=== PATIENT | female | born 1970 | race Caucasian/White ===

== ENCOUNTER 2020-04-24 21:47 | Inpatient (IN) | payer MEDICAID, SELFPAY ==
[2020-04-24 21:49] VITALS: BP 124/68; PULSE 76; RESP 16; TEMP 36.6; O2SAT 96; BMI 33.5
--- NOTE | 2020-04-24 22:04 | ED_ITS ---
HPI - Psych General: Chief Complaint: Psychiatric Symptoms Stated Complaint: DIRECT ADMIT/ SI Time Seen by Provider: 04/24/20 21:57 Source: patient Mode of arrival: ambulatory Limitations: no limitations History of Present Illness: HPI Narrative: Patient is a direct admit from [place]. Patient reports acute anxiety and there is notes of antisocial behavior. The patient is being screened in the ER for possible COVID. Patient denies any loss of sense of taste, loss of sense of smell, cough, shortness of breath or fever. Review of Systems Const: Denies: fever(s), chills, body aches, fatigue, malaise or diaphoresis Eyes: Denies: change in vision, blurry vision, blind spots, photophobia, eye discharge or eye redness ENMT: Denies: throat pain, odynophagia, hoarseness, swelling of lips/tongue, oral sores, ear or mastoid pain, ear discharge, change in hearing or nasal discharge Card: Denies: chest pain, palpitations, irregular heart rhythm, edema, lightheadedness, syncope, pre-syncope, dyspnea on exertion or orthopnea Resp: Denies: dyspnea, productive cough, non-productive cough, wheezing, hemoptysis or chest congestion GI: Denies: abdominal pain, nausea, vomiting, hematemesis, coffee ground emesis, heartburn, diarrhea, constipation, GI cramping, hematochezia or melena : Denies: flank pain, dysuria, urinary frequency, urinary urgency or hematuria Musc: Denies: neck pain, back pain, extremity pain, extremity swelling, joint pain, joint swelling, joint redness, joint warmth or joint stiffness Skin/Breast: Denies: rash, pruritus, erythema, skin tenderness or jaundice Neuro: Denies: headache(s), numbness in extremities, weakness in extremities, sensory changes, lack of coordination, difficulty walking, dizziness, vertigo, confusion, Slurred speech present or seizure-like activity Em[place]/Lymph: Denies: easy bruising, easy bleeding, petechiae, purpura or enlarged lymph nodes All/Imm: Denies: urticaria, throat swelling, tongue swelling, facial swelling or acute wheezing PFSH ED PFSH: Medical History (Updated 04/24/20 @ 23:19 by Juarez Rangel MD) Anxiety Breast cancer COPD (chronic obstructive pulmonary disease) Degenerative joint disease Dependency on alcohol Depression Diabetes mellitus type 2 in obese Hypertension Surgical History (Updated 04/24/20 @ 23:13 by Juarez Rangel MD) History of mastectomy Physical Exam Const: COMMON NORMALS: no acute distress, patient oriented x3, no limitations, healthy appearing and well nourished GENERAL APPEARANCE: cooperative, well kempt and well developed HENMT: COMMON NORMALS: normocephalic, atraumatic, external ears normal, EAC's normal and Normal external nose present HEAD & SCALP: normal to inspection, normocephalic and atraumatic FACE & SINUS: normal facial exam and face symmetric NOSE: Normal external nose present and Normal nares present EXTE RNAL EAR: Yes external ears normal EXTERNAL AUDITORY CANAL: EAC's normal MOUTH: Normal oral and palatal mucosa present, lip normal and tongue normal Eye: COMMON NORMALS: Equal, round and reactive pupils present and conjunctivae normal GENERAL EYE: appearance normal, both eyes and all related structures ALIGNMENT: Yes alignment normal PERIORBITAL: periorbital findings normal EYELID: eyelids normal CONJUNCTIVA: Yes conjunctivae normal SCLERA: s clerae normal PUPIL: Yes Equal, round and reactive pupils present Neck/C-Spine: COMMON NORMALS: full ROM, no lymphadenopathy, supple, no meningeal signs and no JVD GENERAL: Yes normal visual inspection and Yes trachea midline Chest: COMMONS NORMALS: normal inspection of the chest and normal palpation of entire chest wall Resp: COMMON NORMALS: normal respiratory effort, No retractions and No use of accessory muscles EFFORT & INSPECTION: Yes able to speak in complete sentences and Yes symmetric chest movement AUSCULTATION: no crackles, no rales, no rhonchi and no wheezes Cardio: COMMON NORMALS: no JVD, regular rate, regular rhythm, S1 normal heart sound present and S2 normal heart sound present RATE: regular rate RHYTHM: regular rhythm HEART SOUNDS: S1 normal heart sound present, S2 normal heart sound present, no click, no gallops, no murmurs, no rubs and abnormal split S2 GI: COMMON NORMALS: Soft to palpation and No hepatosplenomegaly present PALPATION: Yes Soft to palpation, No Tenderness to palpation present (GI), No Guarding due to palpation present (GI), No Rigid due to palpation, Yes No hepatosplenomegaly present, No Hernia present, No Palpable mass present and No Pulsatile mass present : COMMON NORMALS: Yes no CVA tenderness BLADDER/KIDNEY EXAM: Yes no CVA tenderness EXTERNAL FEMALE EXAM: No Hernia present Back/Pelvis: COMMON NORMALS: no CVA tenderness, thoracic and lumbar spine normal to inspection, no thoracic nor lumbar tenderness and thoraco-lumbar ROM normal Extremity: COMMON NORMALS: normal to inspection, full ROM, capillary refill normal, no joint enlargement, no clubbing, cyanosis or edema and no calf tenderness Neuro: COMMON NORMALS: patient oriented x3, CN's II-XII intact bilaterally, moves all extremities, no focal motor deficits and no sensory deficits noted MENINGEAL SIGNS: Yes no meningeal signs SPEECH: speech normal Psych: COMMON NORMALS: mental status grossly normal, Normal thought process present, cooperative, normal affect, speech normal and activity/motor behavior normal APPEARANCE: Yes well kempt SPEECH: Yes normal speech THOUGHT PROCESS: Normal thought process present Skin: COMMON NORMALS: no rashes or lesions noted, turgor normal, no jaundice, no petechiae and no mottling GENERAL SKIN EXAM: no rashes or lesions noted and turgor normal MDM - Psych MDM Narrative: Medical decision making narrative: Case reviewed with Dr. Monroe he agrees to accept the patient. Patient is not suicidal but I will add a Tylenol and salicylate level. She also has a UTI. I will order those medications for the NPU. Dr. Rangel notified of consult for diabetes. 0358 -patient has a positive qualitative beta hCG. The patient is somewhat menopausal but has not had a hysterectomy. We do occasionally get false positive test here caused by TSH, FSH and LH. I have notified Dr. Kerr and Dr. Rangel. Lab Data: Labs: Lab Results 04/24/20 04/24/20 04/24/20 Range/Units 22:11 22:11 22:11 Estimat Average Gl ucose Hemoglobin A1c (4.0-6.0) % TSH 1.10 (0.27-4.20) uIU/ mL HCG, Qual Positive H (Negative) Salicylates < 0.3 L (3-10) mg/dL Acetaminophen < 5.0 L (10-30) ug/mL 04/24/20 Range/Units 22:11 Estimat Average Gl ucose 303 Hemoglobin A1c 12.2 H (4.0-6.0) % TSH (0.27-4.20) uIU/ mL HCG, Qual (Negative) Salicylates (3-10) mg/dL Acetaminophen (10-30) ug/mL Discharge Plan Discharge Patient Disposition: Admitted As Inpatient Admit Provider: Zachary Kerr Clinical Impression: Acute anxiety Condition: Stable Discharge Date/Time: 04/24/20 23:44 Coding Level of Care Code ED Operations Specialist for Chg Fwd Exam Comprehensive
[2020-04-24 22:09] VITALS: BP 93/61; PULSE 74; RESP 20; TEMP 36.4; O2SAT 98
[2020-04-24 22:37] LABS: Acetaminophen < 5.0 ug/mL (10-30); Salicylate < 0.3 mg/dL (3-10)
--- NOTE | 2020-04-24 23:09 | P.CONIM_ITS ---
Providers/Reason For Consult Consulting Physican/Specialty*: Juarez Rangel hospitalist Reason for Consult*: Hyperglycemia Attending Physician: Zachary Kerr MD History of Present Illness History of Present Illness Ginger Ludwig is a 50 year old female transferred from [place], for methamphetamine use and anxiety to our neuropsychiatric unit. It is hard to delineate what exactly transpired to bring the patient to [place] in reviewing the records. She does admit to recently using methamphetamine. During my interview with her she can answer some questions but is obviously anxious, fidgeting and reports she has difficulty remembering. Information from the emergency department physician, examination of her medicines allows me to outline some of her past medical history. She cannot remember her long-acting insulin dose, but it is apparent it is Lantus. Review of Systems General: Reports: ROS unobtainable due to mental status (Although she can answer a few questions, she often reports she does not remember. She does specifically say that she has no COVID exposure, no cough, no fever.) Meds/Allergies Home Medications and Allergies Allergies Allergy/AdvReac Type Severity Reaction Status Date / Time No Known Allergies Allergy Verified 04/24/20 21:58 PFSH Acute PFSH: Medical History (Updated 04/24/20 @ 23:19 by Juarez Rangel MD) Anxiety Breast cancer COPD (chronic obstructive pulmonary disease) Degenerative joint disease Dependency on alcohol Depression Diabetes mellitus type 2 in obese Hypertension Surgical History (Updated 04/24/20 @ 23:13 by Juarez Rangel MD) History of mastectomy Supplemental PFSH Information: Unable to delineate family history from the patient currently secondary to her mental status. Social history is significant for methamphetamine use tobacco and marijuana. She seems to indicate she does not use alcohol. Vitals/I&O/Wt Last Vital Signs Temp 97.5 F L 04/24/20 22:09 Pulse 74 04/24/20 22:09 Resp 20 H 04/24/20 22:09 BP 93/61 04/24/20 22:09 Pulse Ox 98 04/24/20 22:09 Weight last 48 hrs Weight 88.451 kg Physical Exam Narrative: EXAM NARRATIVE: Gerald is a fidgeting white female, in no obvious distress HEENT: Pupils equally round. Oropharynx clear. Neck is supple no lymphadenopathy or thyromegaly Cardiovascular regular rate and rhythm without murmur. No S3 or S4 Lungs clear no wheezing or crackles Abdomen is soft with positive bowel sounds Extremities no cyanosis clubbing or edema Skin demonstrates multiple areas of picking, skin breakdown, track guadarrama, but no abscess Neuro no focal deficits, has difficulty concentrating, appears anxious and fidgeting Data Other Data: Other data: Laboratory at outside institution has sodium 137, potassium 3.5, chloride 106, bicarb 24, BUN 20, creatinine 1.0, glucose 367 for which she received some insulin. No TSH or test was done White blood cell count 9.1, hemoglobin 14, platelets 189, troponin undetectable, CK 133. Urine white blood cells 44, red blood cells 6 Urine drug screen positive for methamphetamine and THC Salicylate and acetaminophen level negative. Repeat glucose at our institution 139. A&P Assessment and plan (1) Methamphetamine use: Psychiatry to to manage. Check test Encourage cessation Status: Acute (2) Anxiety: Psychiatry to manage Check TSH Status: Acute (3) Depression: Psychiatry to manage Status: Acute (4) Diabetes mellitus type 2 in obese: It appears she is on Lantus, unknown dose along with glipizide and Januvia. She may be on other medications. Will initiate Lantus 10 units every day Moderate sliding scale insulin Further adjustments in this regimen and/or addition of home medications when home list is reviewed and reconciled Check hemoglobin A1c Status: Acute (5) UTI (urinary tract infection): Oral cefuroxime Status: Acute Additional A&P Information Tobacco tendency. Encourage cessation. History of breast cancer. Hopefully she can give more history when she is less under the influence of self-reported drug use History of hypertension. She has been on diltiazem 180 mg daily. Hold as her blood pressure is low currently. May need to restart as hospitalization c ontinues Peripheral neuropathy. On Neurontin 600 mg 3 times daily. May need to be restarted in near future History of COPD. Will provide DuoNeb as needed. We will continue her home Advair Full code Low risk for DVT Consult Attestations Medical Necessity Statement: As per primary Time Spent in Patient Care: Greater than 35 minutes Coding Level of Care Code Acute Clinical Support Specialist for Chg Fwd Diagnoses Methamphetamine use F15.10 Anxiety F41.9 Depression F32.9 Diabetes mellitus type 2 in obese E11.69; E66.9 UTI (urinary tract infection) N39.0
--- NOTE | 2020-04-24 23:09 | PC.NURSE ---
BG 139
[2020-04-24 23:21] LABS: Glucose Point of Care 139 mg/dL (70-110)
[2020-04-24 23:39] VITALS: BP 120/54; PULSE 56; RESP 17; TEMP 36.4; O2SAT 91
[2020-04-24 23:39] LABS: HCG, Serum Qual Positive (Negative)
[2020-04-25] VITALS (9 sets, daily range): BP systolic 101–155; BP diastolic 53–87; PULSE 74–86; RESP 13–18; TEMP 36.5–37; O2SAT 94–98
[2020-04-25 00:06] LABS: Estmated Average Glucose 303; Hemoglobin A1C 12.2 % (4.0-6.0)
--- NOTE | 2020-04-25 03:21 | PC.NURSE ---
Voluntary admission from the ED. Transfer from [facility]. The patient went to the [facility] complaining of anxiety from meth use. She was to be discharged from the ED. She then said she was going to burn her house down. The patient had a recent divorce. Her family has kicked her out. The patient is IDDM. Blood glucose in [facility] was 139. A&Ox4. Cooperative. Not psychotic. Drug screen positive for meth and THC.
[2020-04-25 05:27] LABS: HCG, Serum Qual Positive (Negative)
[2020-04-25 06:51] LABS: Glucose Point of Care 182 mg/dL (70-110)
[2020-04-25] MEDS: cefUROXime 250 mg Tablet PO ×2 (09:37→17:47)
[2020-04-25] MEDS: gabapentin 300 mg Capsule 600 MG PO ×3 (09:37→22:15)
[2020-04-25] MEDS: dilTIAZem ER (24HR) 180 mg Capsule PO (09:37)
[2020-04-25] MEDS: citalopram 20 mg Tablet 40 MG PO (09:38)
[2020-04-25] MEDS: acetaminophen 325 mg Tablet 650 MG PO (09:38)
[2020-04-25] MEDS: sitagliptin 100 mg Tablet PO (09:38)
[2020-04-25 11:16] LABS: Glucose Point of Care 227 mg/dL (70-110)
--- NOTE | 2020-04-25 12:45 | P.PN_ITS ---
Subjective Subjective: Interval history: Chart reviewed, med rec confirmed. Hemodynamically stable, accucheks noted. Resting quietly in bed, seems somewhat scattered but is alert and calm during my encouter. Quantitative b-hCG noted. Medications: Reviewed: Yes Medication Review Details: Active Medications Generic Name Dose Route Start Last Admin Trade Name Freq PRN Reason Stop Dose Admin Acetaminophen 650 mg 04/24/20 23:39 04/25/20 09:38 Tylenol PO 650 mg Q4H PRN Administration MILD PAIN Albuterol Sulfate 0 puff 04/25/20 07:41 Ventolin INHALATION BID PRN SHORTNESS OF MICHELLE TH Albuterol/Ipratrop ium 1 puff 04/25/20 08:00 04/25/20 09:57 Combivent Respim at INHALATION 1 puff QID.RESPIRATORY S CH Administration Benztropine Mesyla te 1 mg 04/24/20 23:39 Cogentin PO BID PRN Mild Extrapyramid al symptoms Camphor/Menthol/Ph enol 1 applic 04/24/20 23:39 Blistex TOPICAL Q1H PRN DRYNESS Cefuroxime Axetil 250 mg 04/25/20 09:00 04/25/20 09:37 Ceftin PO 04/28/20 07:00 250 mg BID BAM Administration Protocol Citalopram Hydrobr omide 40 mg 04/25/20 09:00 04/25/20 09:38 Celexa PO 40 mg DAILY BAM Administration Dextrose 25 ml 04/24/20 23:39 D50w IVP ONCE PRN hypoglycemia prot ocol Protocol Dextrose 50 ml 04/24/20 23:39 D50w IVP PRN PRN hypoglycemia prot ocol Protocol Diltiazem HCl 180 mg 04/25/20 09:00 04/25/20 09:37 Cardizem Cd (24h r) PO 180 mg DAILY BAM Administration Diphenhydramine HC l 50 mg 04/24/20 23:39 Benadryl IM ONCE PRN Severe Extrapyram idal Symptoms Diphenhydramine HC l 50 mg 04/24/20 23:39 Benadryl IM Q4H PRN Severe Aggression Gabapentin 600 mg 04/25/20 09:00 04/25/20 09:37 Neurontin PO 600 mg TID BAM Administration Glucagon 1 mg 04/24/20 23:39 Glucagen IM ONCE PRN Adult Acute Hypog lycemia Prot. Protocol Haloperidol 5 mg 04/24/20 23:39 Haldol PO Q4H PRN AGITATION Haloperidol Lactat e 5 mg 04/24/20 23:39 Haldol Inj IM Q4H PRN Severe Aggression Hydroxyzine Pamoat e 50 mg 04/24/20 23:39 Vistaril PO Q6H PRN ANXIETY Hydroxyzine Pamoat e 50 mg 04/25/20 07:30 Vistaril PO Q6H PRN ITCHING OR ANXIET Y Dextrose 500 mls @ 100 mls /hr 04/24/20 23:39 D5w IV ONCE PRN Adult Acute Hypog lycemia Prot Protocol Ibuprofen 800 mg 04/25/20 06:19 Motrin PO Q8H PRN Pain, Moderate Insulin Aspart 0 unit 04/25/20 08:00 04/25/20 11:28 Novolog SUBCUT 8 unit WM&BEDTIME BAM Administration Protocol Insulin Glargine 50 unit 04/25/20 21:00 Lantus SUBCUT BEDTIME BAM Loperamide HCl 2 mg 04/24/20 23:39 Imodium Capsule PO Q6H PRN DIARRHEA Lorazepam 2 mg 04/24/20 23:39 Ativan IM Q4H PRN Severe Aggression Nicotine 1 patch 04/24/20 23:39 Nicoderm 21 Mg P atch TRANSDERMA DAILY PRN NICOTINE WITHDRAW AL Nicotine Polacrile x 2 mg 04/24/20 23:39 Nicorette BUCCAL Q2H PRN NICOTINE WITHDRAW AL Non-Formulary Medi cation 5 mg 04/25/20 09:00 Glipizide [Gluco trol] PO DAILY [facility] Olanzapine 5 mg 04/24/20 23:39 Zyprexa Zydis PO Q4H PRN Agitation/Psychos is Ondansetron HCl 4 mg 04/24/20 23:39 Zofran PO Q6H PRN NAUSEA AND VOMITI NG Fluticasone/Salmet danielle 1 puff 04/25/20 08:00 04/25/20 09:58 Advair Diskus 25 0-50 INHALATION 1 puff BID.RESPIRATORY S CH Administration Sitagliptin Phosph ate 100 mg 04/25/20 09:00 04/25/20 09:38 Januvia PO 100 mg DAILY BAM Administration Trazodone HCl 50 mg 04/24/20 23:39 Desyrel PO BEDTIME PRN SLEEP No Known Allergies Allergy (Verified 04/24/20 21:58) Vitals/I&O/Wt Last Vital Signs Temp 97.7 F 04/25/20 06:00 Pulse 86 04/25/20 10:01 Resp 18 04/25/20 10:01 BP 137/87 04/25/20 06:00 Pulse Ox 98 04/25/20 10:01 Weight last 48 hrs Weight 88.451 kg Physical Exam Const: COMMON NORMALS: no acute distress, patient oriented x3 and alert GENERAL APPEARANCE: cooperative, comfortable and appears older than stated age NUTRITIONAL APPEARANCE: obese morbidly obese ORIENTATION/CONSCIOUSNESS: Yes awake HENMT: COMMON NORMALS: normocephalic, atraumatic, hearing grossly normal bilaterally and moist oral mucous membranes HEAD & SCALP: normocephalic and atraumatic Eye: COMMON NORMALS: Equal, round and reactive pupils present, EOMs intact bilaterally and conjunctivae normal CONJUNCTIVA: Yes conjunctivae normal PUPIL: Yes Equal, round and reactive pupils present Neck/C-Spine: COMMON NORMALS: full ROM GENERAL: Yes normal visual inspection and Yes trachea midline Resp: COMMON NORMALS: normal respiratory effort, No retractions, No use of accessory muscles and clear to auscultation bilaterally EFFORT & INSPECTION: Yes able to speak in complete sentences, Yes symmetric chest movement and No tachypneic AUSCULTATION: clear to auscultation bilaterally Cardio: COMMON NORMALS: regular rate, regular rhythm, S1 normal heart sound present, S2 normal heart sound present and No murmurs present (Cardio) RATE: regular rate RHYTHM: regular rhythm HEART SOUNDS: S1 normal heart sound present and S2 normal heart sound present GI: COMMON NORMALS: Normal to inspection, nondistended, normoactive bowel sounds present, Soft to palpation and non-tender PALPATION: Yes Soft to palpation Extremity: COMMON NORMALS: normal to inspection, full ROM and no clubbing, cyanosis or edema; negative for no pedal edema Neuro: COMMON NORMALS: patient oriented x3, moves all extremities, no focal motor deficits, no sensory deficits noted and gait normal SENSORIUM/ORIENTATION: Yes alert Psych: COMMON NORMALS: mental status grossly normal, Normal thought process present, cooperative, normal affect and speech normal SPEECH: Yes normal speech THOUGHT PROCESS: Normal thought process present Skin: COMMON NORMALS: no jaundice, no petechiae and no mottling NARRATIVE SKIN EXAM: -psoriatic lesions on bilateral elbows, knees and bilateral arms GENERAL SKIN EXAM: crusts (elbows, knees) A&P Assessment and plan (1) Methamphetamine use: -self reported, confirmed on UDS -per psychiatry Status: Acute (2) Depression: Status: Chronic Qualifiers: Depression Type: unspecified Qualified Code(s): F32.9 - Major depressive disorder, single episode, unspecified (3) Anxiety: Status: Chronic (4) UTI (urinary tract infection): -continue cefuroxime Status: Acute Qualifiers: Hematuria presence: without hematuria Urinary tract infection type: acute cystitis Qualified Code(s): N30.00 - Acute cystitis without hematuria (5) Diabetes mellitus type 2 in obese: -IDDM type II -A1c-12.2 -Accuchecks, ISS, scheduled lantus -consistent carb diet -glipizide not on formulary, continue januvia Status: Chronic (6) Hypertension: -on diltiazem -hemodynamically stable, continue to monitor vital signs Status: Chronic Qualifiers: Hypertension type: essential hypertension Qualified Code(s): I10 - Essential (primary) hypertension (7) Breast cancer: -details unknown Status: Chronic Qualifiers: Breast location: unspecified site of breast Estrogen receptor status: unspecified Laterality: unspecified laterality Patient sex: female Qualified Code(s): C50.919 - Malignant neoplasm of unspecified site of unspecified female breast Additional A&P Information -Morbid obesity: BMI-34 kg/m2 -Psoriatic dermatitis; add topical corticosteroids -+ test, serum quantitative b-hCG noted (7), unlikely to be true -consistent carb diet as tolerated -Dispo: per psych; homeless -Code status: FULL code Attestations Medical Necessity Statement*: Patient requires hospitalization for inpatient psychiatric care. Time Spent in Patient Care: 16 - 35 minutes (>than 50% of time spent in counselling and/or direct pt care on unit) . Coding Level of Care Code Acute Director Of Software Development for Chg Fwd Exam Comprehensive Diagnoses Methamphetamine use F15.10 Depression F32.9 Depression Type: unspecified Anxiety F41.9 UTI (urinary tract infection) N30.00 Hematuria presence: without hematuria Urinary tract infection type: acute cystitis Diabetes mellitus type 2 in obese E11.69; E66.9 Hypertension I10 Hypertension type: essential hypertension Breast cancer C50.919 Breast location: unspecified site of breast Estrogen receptor status: unspecified Laterality: unspecified laterality Patient sex: female
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
[2020-04-25 14:13] LABS: HCG Quantitative 7.04 mIU/mL
[2020-04-25] MEDS: clotrimazole-betamethasone cream 15gm 1 APPLIC TOPICAL ×2 (16:29→22:14)
[2020-04-25 16:34] LABS: Glucose Point of Care 209 mg/dL (70-110)
[2020-04-25 20:15] LABS: Glucose Point of Care 177 mg/dL (70-110)
[2020-04-25] MEDS: mirtazapine 30 mg Tablet PO (22:14)
[2020-04-25] MEDS: insulin glargine 100 units/1 mL 50 UNIT SUBCUT (22:16)
[2020-04-25] MEDS: nicotine 2 mg Gum BUCCAL (22:19)
[2020-04-26] VITALS (8 sets, daily range): BP systolic 118–172; BP diastolic 80–96; PULSE 73–93; RESP 14–20; TEMP 36.6–36.9; O2SAT 92–99
[2020-04-26 06:52] LABS: Glucose Point of Care 262 mg/dL (70-110)
[2020-04-26] MEDS: dilTIAZem ER (24HR) 180 mg Capsule PO (08:13)
[2020-04-26] MEDS: gabapentin 300 mg Capsule 600 MG PO ×3 (08:13→21:32)
[2020-04-26] MEDS: sitagliptin 100 mg Tablet PO (08:13)
[2020-04-26] MEDS: cefUROXime 250 mg Tablet PO ×2 (08:13→17:00)
[2020-04-26] MEDS: clotrimazole-betamethasone cream 15gm 1 APPLIC TOPICAL ×2 (08:14→21:37)
[2020-04-26] MEDS: nicotine 21 mg Patch 1 PATCH TRANSDERMA (08:16)
[2020-04-26 11:46] LABS: Glucose Point of Care 307 mg/dL (70-110)
--- NOTE | 2020-04-26 12:48 | P.PN_ITS ---
Subjective Subjective: Interval history: Noted hypertension, reviewed accuchecks. Resting quietly in bed though appears anxious overall. Medications: Reviewed: Yes Medication Review Details: Active Medications Generic Name Dose Route Start Last Admin Trade Name Freq PRN Reason Stop Dose Admin Acetaminophen 650 mg 04/24/20 23:39 04/25/20 09:38 Tylenol PO 650 mg Q4H PRN Administration MILD PAIN Albuterol Sulfate 0 puff 04/25/20 07:41 Ventolin INHALATION BID PRN SHORTNESS OF MICHELLE TH Albuterol/Ipratrop ium 1 puff 04/25/20 08:00 04/26/20 11:24 Combivent Respim at INHALATION 1 puff QID.RESPIRATORY S CH Administration Benztropine Mesyla te 1 mg 04/24/20 23:39 Cogentin PO BID PRN Mild Extrapyramid al symptoms Betamethasone/Clot rimazole 1 applic 04/25/20 15:00 04/26/20 08:14 Lotrisone TOPICAL 1 applic TID BAM Administration Camphor/Menthol/Ph enol 1 applic 04/24/20 23:39 Blistex TOPICAL Q1H PRN DRYNESS Cefuroxime Axetil 250 mg 04/25/20 09:00 04/26/20 08:13 Ceftin PO 04/28/20 07:00 250 mg BID BAM Administration Protocol Dextrose 25 ml 04/24/20 23:39 D50w IVP ONCE PRN hypoglycemia prot ocol Protocol Dextrose 50 ml 04/24/20 23:39 D50w IVP PRN PRN hypoglycemia prot ocol Protocol Diltiazem HCl 180 mg 04/25/20 09:00 04/26/20 08:13 Cardizem Cd (24h r) PO 180 mg DAILY BAM Administration Diphenhydramine HC l 50 mg 04/24/20 23:39 Benadryl IM ONCE PRN Severe Extrapyram idal Symptoms Diphenhydramine HC l 50 mg 04/24/20 23:39 Benadryl IM Q4H PRN Severe Aggression Gabapentin 600 mg 04/25/20 09:00 04/26/20 08:13 Neurontin PO 600 mg TID BAM Administration Glucagon 1 mg 04/24/20 23:39 Glucagen IM ONCE PRN Adult Acute Hypog lycemia Prot. Protocol Haloperidol 5 mg 08/05/20 23:39 Haldol PO Q4H PRN AGITATION Haloperidol Lactat e 5 mg 04/24/20 23:39 Haldol Inj IM Q4H PRN Severe Aggression Hydroxyzine Pamoat e 50 mg 04/24/20 23:39 Vistaril PO Q6H PRN ANXIETY Hydroxyzine Pamoat e 50 mg 04/25/20 07:30 Vistaril PO Q6H PRN ITCHING OR ANXIET Y Dextrose 500 mls @ 100 mls /hr 04/24/20 23:39 D5w IV ONCE PRN Adult Acute Hypog lycemia Prot Protocol Ibuprofen 800 mg 04/25/20 06:19 Motrin PO Q8H PRN Pain, Moderate Insulin Aspart 0 unit 04/25/20 08:00 04/26/20 11:48 Novolog SUBCUT 12 unit WM&BEDTIME BAM Administration Protocol Insulin Aspart 10 unit 04/26/20 17:00 Novolog SUBCUT TIDAC BAM Insulin Glargine 50 unit 04/25/20 21:00 04/25/20 22:16 Lantus SUBCUT 50 unit BEDTIME BAM Administration Loperamide HCl 2 mg 04/24/20 23:39 Imodium Capsule PO Q6H PRN DIARRHEA Lorazepam 2 mg 04/24/20 23:39 Ativan IM Q4H PRN Severe Aggression Mirtazapine 30 mg 04/25/20 21:00 04/25/20 22:14 Remeron PO 30 mg BEDTIME BAM Administration Nicotine 1 patch 04/24/20 23:39 04/26/20 08:16 Nicoderm 21 Mg P atch TRANSDERMA 1 patch DAILY PRN Administration NICOTINE WITHDRAW AL Nicotine Polacrile x 2 mg 04/24/20 23:39 04/25/20 22:19 Nicorette BUCCAL 2 mg Q2H PRN Administration NICOTINE WITHDRAW AL Non-Formulary Medi cation 5 mg 04/25/20 09:00 Glipizide [Gluco trol] PO DAILY [facility] Olanzapine 5 mg 04/24/20 23:39 Zyprexa Zydis PO Q4H PRN Agitation/Psychos is Ondansetron HCl 4 mg 04/24/20 23:39 Zofran PO Q6H PRN NAUSEA AND VOMITI NG Fluticasone/Salmet danielle 1 puff 04/25/20 08:00 04/26/20 07:57 Advair Diskus 25 0-50 INHALATION 1 puff BID.RESPIRATORY S CH Administration Sitagliptin Phosph ate 100 mg 04/25/20 09:00 04/26/20 08:13 Januvia PO 100 mg DAILY BAM Administration Trazodone HCl 100 mg 04/25/20 13:44 Desyrel PO BEDTIME PRN SLEEP No Known Allergies Allergy (Verified 04/24/20 21:58) Vitals/I&O/Wt Last Vital Signs Temp 97.9 F 04/26/20 06:00 Pulse 81 04/26/20 11:25 Resp 16 04/26/20 11:25 BP 172/96 04/26/20 06:00 Pulse Ox 94 04/26/20 11:25 Weight last 48 hrs Weight 88.451 kg Physical Exam Const: COMMON NORMALS: no acute distress, patient oriented x3 and alert GENERAL APPEARANCE: cooperative, comfortable and appears older than stated age NUTRITIONAL APPEARANCE: obese morbidly obese ORIENTATION/CONSCIOUSNESS: Yes awake HENMT: COMMON NORMALS: normocephalic, atraumatic, hearing grossly normal bilaterally and moist oral mucous membranes HEAD & SCALP: normocephalic and atraumatic Eye: COMMON NORMALS: Equal, round and reactive pupils present, EOMs intact bilaterally and conjunctivae normal CONJUNCTIVA: Yes conjunctivae normal PUPIL: Yes Equal, round and reactive pupils present Neck/C-Spine: COMMON NORMALS: full ROM GENERAL: Yes normal visual inspection and Yes trachea midline Resp: COMMON NORMALS: normal respiratory effort, No retractions, No use of accessory muscles and clear to auscultation bilaterally EFFORT & INSPECTION: Yes able to speak in complete sentences, Yes symmetric chest movement and No tachypneic AUSCULTATION: clear to auscultation bilaterally Cardio: COMMON NORMALS: regular rate, regular rhythm, S1 normal heart sound present, S2 normal heart sound present and No murmurs present (Cardio) RATE: regular rate RHYTHM: regular rhythm HEART SOUNDS: S1 normal heart sound present and S2 normal heart sound present GI: COMMON NORMALS: Normal to inspection, nondistended, normoactive bowel sounds present, Soft to palpation and non-tender PALPATION: Yes Soft to palpation Extremity: COMMON NORMALS: normal to inspection, full ROM and no clubbing, cyanosis or edema; negative for no pedal edema Neuro: COMMON NORMALS: patient oriented x3, moves all extremities, no focal motor deficits, no sensory deficits noted and gait normal SENSORIUM/ORIENTATION: Yes alert Psych: COMMON NORMALS: mental status grossly normal, Normal thought process present, cooperative and speech normal SPEECH: Yes normal speech MOOD & AFFECT: Yes anxious THOUGHT PROCESS: Normal thought process present Skin: COMMON NORMALS: no jaundice, no petechiae and no mottling NARRATIVE SKIN EXAM: -psoriatic lesions on bilateral elbows, knees and bilateral arms GENERAL SKIN EXAM: crusts (elbows, knees) A&P Assessment and plan (1) Methamphetamine use: -self reported, confirmed on UDS -per psychiatry Status: Acute (2) Depression: Status: Chronic Qualifiers: Depression Type: unspecified Qualified Code(s): F32.9 - Major depressive disorder, single episode, unspecified (3) Anxiety: Status: Chronic (4) UTI (urinary tract infection): -continue cefuroxime Status: Acute Qualifiers: Hematuria presence: without hematuria Urinary tract infection type: acute cystitis Qualified Code(s): N30.00 - Acute cystitis without hematuria (5) Diabetes mellitus type 2 in obese: -IDDM type II -A1c-12.2 -Accuchecks, ISS, scheduled lantus; add meal-time insulin -consistent carb diet -glipizide not on formulary, continue januvia Status: Chronic (6) Hypertension: -on diltiazem -hypertensive, add low dose amlodipine, continue to monitor vital signs Status: Chronic Qualifiers: Hypertension type: essential hypertension Qualified Code(s): I10 - Essential (primary) hypertension (7) Breast cancer: -details unknown Status: Chronic Qualifiers: Breast location: unspecified site of breast Estrogen receptor status: unspecified Laterality: unspecified laterality Patient sex: female Qualified Code(s): C50.919 - Malignant neoplasm of unspecified site of unspecified female breast Additional A&P Information -Morbid obesity: BMI-34 kg/m2 -Psoriatic dermatitis; on topical corticosteroids -+ test, serum quantitative b-hCG noted (7), unlikely to be true -consistent carb diet as tolerated -Dispo: per psych; homeless -Code status: FULL code Attestations Medical Necessity Statement*: Patient requires hospitalization for continued care per psychiatry. Time Spent in Patient Care: less than 15 minutes (>than 50% of time spent in counselling and/or direct pt care on unit) . Coding Level of Care Code Acute Bookie for Chg Fwd Exam Comprehensive Diagnoses Methamphetamine use F15.10 Depression F32.9 Depression Type: unspecified Anxiety F41.9 UTI (urinary tract infection) N30.00 Hematuria presence: without hematuria Urinary tract infection type: acute cystitis Diabetes mellitus type 2 in obese E11.69; E66.9 Hypertension I10 Hypertension type: essential hypertension Breast cancer C50.919 Breast location: unspecified site of breast Estrogen receptor status: unspecified Laterality: unspecified laterality Patient sex: female
[2020-04-26] MEDS: amlodipine 5 mg Tablet 2.5 MG PO (12:58)
--- NOTE | 2020-04-26 13:57 | P.PN_ITS ---
Subjective NPU Subjective: Interval history: Patient complains of anxiety during the day but she is not taking her as needed hydroxyzine. She also is complaining of low back pain which is a chronic problem for her and that is impairing her sleep. Mental Status Exam MSE Comments: Mental Status Exam: The patient is an alert interpersonally engaged female appearing approximately her stated age. She is modestly overweight. Eye contact is good. She is believed to be generally a reliable source of information as information she provides is internally consistent and generally consistent with that in the chart. Appearance: hygiene is fair; no gross neurological deficits., gait is unremarkable; AIMS=0 Speech: Speech is of normal rate and rhythm and easily understood. Thought processes: Thought processes are abstract. Judgment is adequate for safety. Associations: intact Psychotic processes: There is no indication of guarding or paranoia. There is no attention to the internal stimuli. Auditory and visual hallucinations are denied. Judgment: Insight is fair. Problem solving skills are adequate for safety. Orientation: The patient is oriented to person, place time and situation. Memory: no deficits noted in immediate, intermediate, or remote spheres. Attention: The patient is alert and interpersonally engaged. Language: Verbalizations are coherent. Fund of knowledge: Fund of knowledge is adequate. Affect/Mood: Affect is sad with a depressed mood. pt denies suicidal ideation Affective range appropriate. Psychosis: perception unimpaired except through cognitive distortion; reality testing intact. Cognition: Patient Appearance: Appropriate Level of Consciousness: Awake, Alert and Appropriate Patient Cognition Impaired: No Ability to Follow Directions: Good Patient Orientation (long list): Person, Place, Time, Name and Age Comprehension Ability: No Impairment Hallucination Type: None Delusion Description: Not Present Thought Process: Appropriate Affect: Affect Description: Calm Depressive Symptoms: Difficulty Concentrating, Difficulty Sleeping, Difficulty Making Decisions, Increased Anxiety, Increased Fatigue, Isolating Oneself From Friends and Family and Unhappiness Behavior: Patient Behavior: Cooperative Speech Pattern: Clear Vitals/I&O/Wt Last Vital Signs Temp 97.9 F 04/26/20 06:00 Pulse 81 04/26/20 11:25 Resp 16 04/26/20 11:25 BP 172/96 04/26/20 06:00 Pulse Ox 94 04/26/20 11:25 Weight last 48 hrs Weight 88.451 kg A&P Additional A&P Information Diagnoses: Major depression?single episode, severe, without psychotic features Crisis reaction Adjustment disorder with disturbance of mood Assessment: The patient is believed to be a reliable informant and as such, she truly is in a situation of psychosocial and financial crisis. He meets criteria for clinical depression and is not being served well by her current medication. Medication adjustments will be coming. She is somewhat invested and portraying herself as a victim and to that degree it is unclear how accurate her descriptions of her psychosocial situation are. Further investigation is warranted. Treatment plan: Due to the psychiatric conditions and treatment listed in the Assessment and Plan - the patient requires continued hospitalization. Will provide a safe and therapeutic environment for patient.. Will continue inpatient treatment to allow for medication adjustment and monitoring. Will continue q15 min safety checks. Hospital day #1: Patient will be admitted to the adult psychiatric unit and entered into the full array of individual and group therapies as part of that unit protocol. They will be provided 24-hour access to trained psychiatric nursing care and monitoring. Potential benefits and side effects of medications were discussed as well as the time course of expected response to medication changes. The patient is believed to be a reliable informant and as such, she truly is in a situation of psychosocial and financial crisis. He meets criteria for clinical depression and is not being served well by her current medication. Medication adjustments will be coming. She is somewhat invested and portraying herself as a victim and to that degree it is unclear how accurate her descriptions of her psychosocial situation are. Further investigation is warranted. Plan: Citalopram will be replaced with mirtazapine 30 mg at bedtime. It will be supplemented with trazodone for sleep. Hospital day #2: Medicine service is titrating her insulin dosages and assisting with medical issues. Patient is engaged and crisis stabilization efforts. Her medications are not causing her problems at least in the first dosages. Plan: Recommend requesting as needed anxiety medication. Cyclobenzaprine started at at bedtime to assist with back pain and sleep. Monitor patient's mood, sleep, appetite, and behavior closely. Encourage patient to participate in individual and group therapeutic sessions on the jama. Estimated length of stay 5 days The expected benefits and potential side effects of patient's psychiatric medications were discussed with the patient. The patient understands and consents to treatment.CRITERIA FOR DISCHARGE: stable on medications and no longer an imminent risk Involuntary Hold Information 96 Hour Hold: 96 Hour Involuntary Admission: Yes 96 Hour Hold Ending Date: 04/30/20 96 Hour Hold Ending Time: 23:30 Attestations NPU Medical Necessity Statement*: Patient to remain in hospital another 3-4 nights for completion of medication efficacy and tolerability assessment. Coding Level of Care Code Acute Director Of Integrated Marketing for Asha Otero
[2020-04-26] MEDS: cyclobenzaprine 10 mg Tablet 5 MG PO (14:08)
[2020-04-26] MEDS: hyDROXYzine 25 mg Capsule PO (14:58)
--- NOTE | 2020-04-26 14:58 | PC.NURSE ---
prn Vistaril 25 mg given po per pt c/o stated anxiety. no outward s/s of anxiety noted. pt has been asleep in bed in room most of the day. staff will cont to monitor
[2020-04-26 16:49] LABS: Glucose Point of Care 168 mg/dL (70-110)
--- NOTE | 2020-04-26 17:30 | PC.NURSE ---
Patient stated that she had been anxious but she is feeling better since she began taking medication. Her visit with her son went well and the relationship is more open for communication. He said he would come and get her from [place], [place] but she said she needs to be on her own and wants longterm placement. Patients rash is healing well but is still red and scaly. She says that it itches some but the cream she is currently using is helping. When asked if this is a skin condition like dermatitis, she said no that it is actually a reaction to multiple bug bites.
--- NOTE | 2020-04-26 18:46 | PC.RESP ---
SMOKING CESSATION AND PULMONARY REHAB INFORMATION SENT TO PATIENT.
[2020-04-26 20:05] LABS: Glucose Point of Care 132 mg/dL (70-110)
[2020-04-26] MEDS: acetaminophen 325 mg Tablet 650 MG PO (21:32)
[2020-04-26] MEDS: mirtazapine 30 mg Tablet PO (21:33)
[2020-04-26] MEDS: cyclobenzaprine 10 mg Tablet PO (21:33)
[2020-04-26] MEDS: insulin glargine 100 units/1 mL 50 UNIT SUBCUT (21:35)
[2020-04-27] VITALS (7 sets, daily range): BP systolic 113–166; BP diastolic 75–95; PULSE 80–84; RESP 16–19; TEMP 36.8–36.9; O2SAT 92–97
[2020-04-27] MEDS: hyDROXYzine 25 mg Capsule PO ×3 (01:49→20:34)
[2020-04-27 06:32] LABS: Glucose Point of Care 154 mg/dL (70-110)
[2020-04-27] MEDS: sitagliptin 100 mg Tablet PO (07:33)
[2020-04-27] MEDS: amlodipine 5 mg Tablet 2.5 MG PO (07:33)
[2020-04-27] MEDS: gabapentin 300 mg Capsule 600 MG PO ×3 (07:33→20:34)
[2020-04-27] MEDS: cefUROXime 250 mg Tablet PO ×2 (07:33→16:54)
[2020-04-27] MEDS: dilTIAZem ER (24HR) 180 mg Capsule PO (07:34)
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
[2020-04-27 11:24] LABS: Glucose Point of Care 163 mg/dL (70-110)
--- NOTE | 2020-04-27 12:50 | PC.NURSE ---
PRN VISTARIL 25 MG GIVEN PO PER PT C/O ANXIETY. TEARFUL IN ROOM. WILL CONT TO MONITOR
--- NOTE | 2020-04-27 13:10 | P.PN_ITS ---
Subjective Subjective: Interval history: Hemodynamically stable, Accu-Cheks noted with improvement since introduction of mealtime insulin. Resting quietly in bed, somewhat difficult to arouse that she has just received a dose of Vistaril. Per nursing staff, no issues. Medications: Reviewed: Yes Medication Review Details: Active Medications Generic Name Dose Route Start Last Admin Trade Name Freq PRN Reason Stop Dose Admin Acetaminophen 650 mg 04/24/20 23:39 04/26/20 21:32 Tylenol PO 650 mg Q4H PRN Administration MILD PAIN Albuterol Sulfate 0 puff 04/25/20 07:41 Ventolin INHALATION BID PRN SHORTNESS OF MICHELLE TH Albuterol/Ipratrop ium 1 puff 04/25/20 08:00 04/27/20 08:05 Combivent Respim at INHALATION 1 puff QID.RESPIRATORY S CH Administration Amlodipine Besylat e 2.5 mg 04/26/20 12:50 04/27/20 07:33 Norvasc PO 2.5 mg DAILY BAM Administration Benztropine Mesyla te 1 mg 04/24/20 23:39 Cogentin PO BID PRN Mild Extrapyramid al symptoms Betamethasone/Clot rimazole 1 applic 04/25/20 15:00 04/27/20 07:34 Lotrisone TOPICAL Not Given TID BAM Camphor/Menthol/Ph enol 1 applic 04/24/20 23:39 Blistex TOPICAL Q1H PRN DRYNESS Cefuroxime Axetil 250 mg 04/25/20 09:00 04/27/20 07:33 Ceftin PO 04/28/20 07:00 250 mg BID BAM Administration Protocol Cyclobenzaprine HC l 5 mg 04/27/20 08:02 Flexeril PO TID PRN MUSCLE SPASMS Dextrose 25 ml 04/24/20 23:39 D50w IVP ONCE PRN hypoglycemia prot ocol Protocol Dextrose 50 ml 04/24/20 23:39 D50w IVP PRN PRN hypoglycemia prot ocol Protocol Diltiazem HCl 180 mg 04/25/20 09:00 04/27/20 07:34 Cardizem Cd (24h r) PO 180 mg DAILY BAM Administration Diphenhydramine HC l 50 mg 04/24/20 23:39 Benadryl IM ONCE PRN Severe Extrapyram idal Symptoms Diphenhydramine HC l 50 mg 04/24/20 23:39 Benadryl IM Q4H PRN Severe Aggression Gabapentin 600 mg 04/25/20 09:00 04/27/20 07:33 Neurontin PO 600 mg TID BAM Administration Glucagon 1 mg 04/24/20 23:39 Glucagen IM ONCE PRN Adult Acute Hypog lycemia Prot. Protocol Haloperidol 5 mg 04/24/20 23:39 Haldol PO Q4H PRN AGITATION Haloperidol Lactat e 5 mg 04/24/20 23:39 Haldol Inj IM Q4H PRN Severe Aggression Hydroxyzine Pamoat e 25 mg 04/26/20 13:56 04/27/20 12:49 Vistaril PO 25 mg Q6H PRN Administration ITCHING OR ANXIET Y Dextrose 500 mls @ 100 mls /hr 04/24/20 23:39 D5w IV ONCE PRN Adult Acute Hypog lycemia Prot Protocol Ibuprofen 800 mg 04/25/20 06:19 04/27/20 11:46 Motrin PO 800 mg Q8H PRN Administration Pain, Moderate Insulin Aspart 0 unit 04/25/20 08:00 04/27/20 11:47 Novolog SUBCUT 4 unit WM&BEDTIME BAM Administration Protocol Insulin Aspart 10 unit 04/26/20 17:00 04/27/20 11:47 Novolog SUBCUT 10 unit TIDAC BAM Administration Insulin Glargine 50 unit 04/25/20 21:00 04/26/20 21:35 Lantus SUBCUT 50 unit BEDTIME BAM Administration Loperamide HCl 2 mg 04/24/20 23:39 Imodium Capsule PO Q6H PRN DIARRHEA Lorazepam 2 mg 04/24/20 23:39 Ativan IM Q4H PRN Severe Aggression Mirtazapine 30 mg 04/25/20 21:00 04/26/20 21:33 Remeron PO 30 mg BEDTIME BAM Administration Nicotine 1 patch 04/24/20 23:39 04/26/20 08:16 Nicoderm 21 Mg P atch TRANSDERMA 1 patch DAILY PRN Administration NICOTINE WITHDRAW AL Nicotine Polacrile x 2 mg 04/24/20 23:39 04/25/20 22:19 Nicorette BUCCAL 2 mg Q2H PRN Administration NICOTINE WITHDRAW AL Non-Formulary Medi cation 5 mg 04/25/20 09:00 Glipizide [Gluco trol] PO DAILY BAM Olanzapine 5 mg 04/24/20 23:39 Zyprexa Zydis PO Q4H PRN Agitation/Psychos is Ondansetron HCl 4 mg 04/24/20 23:39 Zofran PO Q6H PRN NAUSEA AND VOMITI NG Fluticasone/Salmet danielle 1 puff 04/25/20 08:00 04/27/20 08:00 Advair Diskus 25 0-50 INHALATION 1 puff BID.RESPIRATORY S CH Administration Sitagliptin Phosph ate 100 mg 04/25/20 09:00 04/27/20 07:33 Januvia PO 100 mg DAILY BAM Administration Trazodone HCl 100 mg 04/25/20 13:44 Desyrel PO BEDTIME PRN SLEEP Trazodone HCl 100 mg 04/27/20 21:00 Desyrel PO BEDTIME BAM No Known Allergies Allergy (Verified 04/24/20 21:58) Vitals/I&O/Wt Last Vital Signs Temp 98.4 F 04/27/20 06:00 Pulse 82 04/27/20 08:10 Resp 16 04/27/20 08:09 BP 166/95 04/27/20 06:00 Pulse Ox 96 04/27/20 08:09 Physical Exam Const: COMMON NORMALS: no acute distress GENERAL APPEARANCE: comfortable and appears older than stated age NUTRITIONAL APPEARANCE: obese morbidly obese OTHER: -Resting quietly in bed HENMT: COMMON NORMALS: normocephalic, atraumatic, hearing grossly normal bilaterally and moist oral mucous membranes HEAD & SCALP: normocephalic and atraumatic Eye: COMMON NORMALS: Equal, round and reactive pupils present, EOMs intact bilaterally and conjunctivae normal CONJUNCTIVA: Yes conjunctivae normal PUPIL: Yes Equal, round and reactive pupils present Neck/C-Spine: COMMON NORMALS: full ROM GENERAL: Yes normal visual inspection and Yes trachea midline Resp: COMMON NORMALS: normal respiratory effort, No retractions, No use of accessory muscles and clear to auscultation bilaterally EFFORT & INSPECTION: Yes able to speak in complete sentences, Yes symmetric chest movement and No tachypneic AUSCULTATION: clear to auscultation bilaterally Cardio: COMMON NORMALS: regular rate, regular rhythm, S1 normal heart sound present, S2 normal heart sound present and No murmurs present (Cardio) RATE: regular rate RHYTHM: regular rhythm HEART SOUNDS: S1 normal heart sound present and S2 normal heart sound present GI: COMMON NORMALS: Normal to inspection, nondistended, normoactive bowel sounds present, Soft to palpation and non-tender PALPATION: Yes Soft to palpation Extremity: COMMON NORMALS: normal to inspection, full ROM and no clubbing, cyanosis or edema; negative for no pedal edema Neuro: COMMON NORMALS: moves all extremities, no focal motor deficits, no sensory deficits noted and gait normal Psych: COMMON NORMALS: mental status grossly normal, Normal thought process present, cooperative and speech normal SPEECH: Yes normal speech MOOD & AFFECT: Yes anxious THOUGHT PROCESS: Normal thought process present Skin: COMMON NORMALS: no jaundice, no petechiae and no mottling NARRATIVE SKIN EXAM: -psoriatic lesions on bilateral elbows, knees and bilateral arms GENERAL SKIN EXAM: crusts (elbows, knees) A&P Assessment and plan (1) Methamphetamine use: -self reported, confirmed on UDS -per psychiatry Status: Acute (2) Depression: Status: Chronic Qualifiers: Depression Type: unspecified Qualified Code(s): F32.9 - Major depressive disorder, single episode, unspecified (3) Anxiety: Status: Chronic (4) UTI (urinary tract infection): -continue cefuroxime (day 11/27) Status: Acute Qualifiers: Hematuria presence: without hematuria Urinary tract infection type: acute cystitis Qualified Code(s): N30.00 - Acute cystitis without hematuria (5) Diabetes mellitus type 2 in obese: -IDDM type II -A1c-12.2 -Accuchecks, ISS, scheduled lantus; meal-time insulin -consistent carb diet -glipizide not on formulary, continue januvia Status: Chronic (6) Hypertension: -on diltiazem -hypertensive part of which is likely anxiety driven, continue amlodipine, continue to monitor vital signs Status: Chronic Qualifiers: Hypertension type: essential hypertension Qualified Code(s): I10 - E ssential (primary) hypertension (7) Breast cancer: -details unknown Status: Chronic Qualifiers: Breast location: unspecified site of breast Estrogen receptor status: unspecified Laterality: unspecified laterality Patient sex: female Qualified Code(s): C50.919 - Malignant neoplasm of unspecified site of unspecified female breast Additional A&P Information -Morbid obesity: BMI-34 kg/m2 -Psoriatic dermatitis; on topical corticosteroids -+ test, serum quantitative b-hCG noted (7), unlikely to be true -consistent carb diet as tolerated -Dispo: per psych; homeless -Code status: FULL code -will sign off, please call with questions. Attestations Medical Necessity Statement*: Patient requires hospitalization for continued inpatient psychiatric care. Time Spent in Patient Care: less than 15 minutes (>than 50% of time spent in counselling and/or direct pt care on unit) . Coding Level of Care Code Acute Waiter/Waitress Room Service for Chg Fwd Exam Comprehensive Diagnoses Methamphetamine use F15.10 Depression F32.9 Depression Type: unspecified Anxiety F41.9 UTI (urinary tract infection) N30.00 Hematuria presence: without hematuria Urinary tract infection type: acute cystitis Diabetes mellitus type 2 in obese E11.69; E66.9 Hypertension I10 Hypertension type: essential hypertension Breast cancer C50.919 Breast location: unspecified site of breast Estrogen receptor status: unspecified Laterality: unspecified laterality Patient sex: female
[2020-04-27] MEDS: cyclobenzaprine 10 mg Tablet 5 MG PO (15:15)
[2020-04-27] MEDS: clotrimazole-betamethasone cream 15gm 1 APPLIC TOPICAL ×2 (15:16→20:33)
--- NOTE | 2020-04-27 15:18 | PC.NURSE ---
PRN FLEXERIL 5 MG GIVEN PO PER PT C/O MUSCLE SPASMS. WILL CONT TO MONITOR
[2020-04-27 16:36] LABS: Glucose Point of Care 157 mg/dL (70-110)
[2020-04-27 19:37] LABS: Glucose Point of Care 120 mg/dL (70-110)
[2020-04-27] MEDS: trazodone 100 mg Tablet PO (20:34)
[2020-04-27] MEDS: insulin glargine 100 units/1 mL 50 UNIT SUBCUT (20:34)
[2020-04-27] MEDS: mirtazapine 30 mg Tablet PO (20:34)
[2020-04-28] VITALS (7 sets, daily range): BP systolic 152–158; BP diastolic 68–84; PULSE 77–92; RESP 16–22; TEMP 36.6–36.9; O2SAT 95–98
[2020-04-28 06:26] LABS: Glucose Point of Care 128 mg/dL (70-110)
[2020-04-28] MEDS: cyclobenzaprine 10 mg Tablet 5 MG PO ×2 (07:42→17:08)
[2020-04-28] MEDS: gabapentin 300 mg Capsule 600 MG PO ×3 (08:33→21:43)
[2020-04-28] MEDS: hyDROXYzine 25 mg Capsule PO ×3 (08:33→21:44)
[2020-04-28] MEDS: nicotine 21 mg Patch 1 PATCH TRANSDERMA (08:33)
[2020-04-28] MEDS: sitagliptin 100 mg Tablet PO (08:33)
[2020-04-28] MEDS: amlodipine 5 mg Tablet 2.5 MG PO (08:33)
[2020-04-28] MEDS: dilTIAZem ER (24HR) 180 mg Capsule PO (08:33)
--- NOTE | 2020-04-28 08:33 | PC.NURSE ---
PRN VISTARIL VISTARIL 25MG PO PER PATIENT C/O ANXIETY. WILL CONTINUE TO MONITOR FOR MEDICATION EFFECTIVENESS.
--- NOTE | 2020-04-28 09:20 | PC.NURSE ---
PRN VISTARIL FOLLOW UP MEDICATION EFFECTIVE, NO FURTHER C/O ANXIETY. PATIENT LYING IN BED RESTING.
[2020-04-28 11:46] LABS: Glucose Point of Care 157 mg/dL (70-110)
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
[2020-04-28] MEDS: clotrimazole-betamethasone cream 15gm 1 APPLIC TOPICAL (14:40)
--- NOTE | 2020-04-28 14:42 | PC.NURSE ---
Addendum entered by Alyson Salas LPN 04/28/20 15:40: MEDICATION EFFECTIVE. NO FURTHER C/O ANXIETY. Original Note: PRN VISTARIL VISTARIL 25MG PO PER PATIENT C/O ANXIETY. WILL CONTINUE TO MONITOR FOR MEDICATION EFFECTIVENESS.
[2020-04-28 17:00] LABS: Glucose Point of Care 142 mg/dL (70-110)
[2020-04-28 20:15] LABS: Glucose Point of Care 99 mg/dL (70-110)
[2020-04-28] MEDS: mirtazapine 30 mg Tablet PO (21:43)
[2020-04-28] MEDS: trazodone 100 mg Tablet PO (21:43)
[2020-04-28] MEDS: insulin glargine 100 units/1 mL 50 UNIT SUBCUT (22:19)
--- NOTE | 2020-04-28 23:37 | PC.NURSE ---
pt given scheduled gabapentin, lantus, and remeron but refused lotrisone cream. pt also request sleep aide and something for anxiety PRN vistaril and trazodone given.
[2020-04-29 06:00] VITALS: BP 138/67; PULSE 80; RESP 16; TEMP 36.5; O2SAT 94
[2020-04-29 06:34] LABS: Glucose Point of Care 138 mg/dL (70-110)
[2020-04-29] MEDS: clotrimazole-betamethasone cream 15gm 1 APPLIC TOPICAL ×3 (08:22→20:33)
[2020-04-29] MEDS: escitalopram 10 mg Tablet PO (08:22)
[2020-04-29] MEDS: sitagliptin 100 mg Tablet PO (08:22)
[2020-04-29] MEDS: amlodipine 5 mg Tablet 2.5 MG PO (08:22)
[2020-04-29] MEDS: dilTIAZem ER (24HR) 180 mg Capsule PO (08:22)
[2020-04-29] MEDS: gabapentin 300 mg Capsule 600 MG PO ×3 (08:22→20:32)
[2020-04-29] MEDS: nicotine 21 mg Patch 1 PATCH TRANSDERMA (08:25)
[2020-04-29] MEDS: cyclobenzaprine 10 mg Tablet 5 MG PO ×2 (09:07→17:13)
[2020-04-29 11:21] LABS: Glucose Point of Care 175 mg/dL (70-110)
[2020-04-29 13:30] VITALS: BP 120/71; PULSE 87; RESP 18; TEMP 36.9; O2SAT 96
[2020-04-29] MEDS: hyDROXYzine 25 mg Capsule PO (15:17)
--- NOTE | 2020-04-29 15:18 | PC.NURSE ---
PRN VISTARIL ADMINISTERED VISTARIL 25MG PO FOR PT C/O INCREASING ANXIETY. WILL MONITOR FOR MEDICATION EFFECTIVENESS.
[2020-04-29 16:46] LABS: Glucose Point of Care 124 mg/dL (70-110)
[2020-04-29 20:05] LABS: Glucose Point of Care 203 mg/dL (70-110)
[2020-04-29 20:24] VITALS: BP 118/75; PULSE 77; RESP 18; TEMP 36.8; O2SAT 96
[2020-04-29] MEDS: mirtazapine 30 mg Tablet PO (20:32)
[2020-04-29] MEDS: insulin glargine 100 units/1 mL 50 UNIT SUBCUT (20:32)
[2020-04-29] MEDS: trazodone 100 mg Tablet PO (20:32)
--- NOTE | 2020-04-29 21:31 | PC.NURSE ---
pt given scheduled gabapentin, remeron, lantus 50units, and novolog 6 units for BG of 203. pt also requested prn trazodone for sleep. lotrisone cream for pt s body rash, to be delivered by pharmacy.
[2020-04-30] VITALS (7 sets, daily range): BP systolic 120–176; BP diastolic 71–92; PULSE 74–80; RESP 16–18; TEMP 36.2–36.8; O2SAT 95–98
[2020-04-30 06:58] LABS: Glucose Point of Care 136 mg/dL (70-110)
[2020-04-30] MEDS: cyclobenzaprine 10 mg Tablet 5 MG PO ×2 (07:34→17:16)
[2020-04-30] MEDS: escitalopram 10 mg Tablet PO (07:34)
[2020-04-30] MEDS: sitagliptin 100 mg Tablet PO (07:34)
[2020-04-30] MEDS: gabapentin 300 mg Capsule 600 MG PO ×3 (07:35→20:44)
[2020-04-30] MEDS: dilTIAZem ER (24HR) 180 mg Capsule PO (07:35)
[2020-04-30] MEDS: hyDROXYzine 25 mg Capsule 50 MG PO ×3 (07:36→20:46)
[2020-04-30] MEDS: amlodipine 5 mg Tablet 2.5 MG PO (07:36)
--- NOTE | 2020-04-30 07:39 | PC.NURSE ---
Addendum entered by Kaylie Guzman LPN 04/30/20 12:56: late entry prn meds effective no further c/o spasms or anxiety. pt asleep in bed in room currently Original Note: prn FLEXERIL & VISTARIL FLEXERIL 5 MG GIVEN PO PER PT C/O SPASMS. VISTARIL 50 MG GIVEN PO PER PT C/O STATED ANXIETY. NO OUTWARD S/S OF ANXIETY NOTED. PT MOOD IS PLEASANT, SMILING AT STAFF, TALKING ABOUT POSSIBLE DISCHARGE TODAY. WILL CONT TO MONITOR
[2020-04-30] MEDS: clotrimazole-betamethasone cream 15gm 1 APPLIC TOPICAL ×3 (07:41→20:49)
[2020-04-30] MEDS: albuterol 8 gm MDI INHALATION ×2 (08:45→23:30)
[2020-04-30 11:32] LABS: Glucose Point of Care 253 mg/dL (70-110)
[2020-04-30] MEDS: nicotine 2 mg Gum BUCCAL ×2 (14:46→20:06)
--- NOTE | 2020-04-30 14:47 | PC.NURSE ---
Addendum entered by Kaylie Guzman LPN 04/30/20 15:32: prn med effective no further c/o anxiety Original Note: PRN VISTARIL 50 MG GIVEN PO PER PT C/O STATED ANXIETY. NO OUTWARD S/S OF ANXIETY NOTED CURRENTLY. PT SMILING WHILE TALKING TO STAFF. WILL CONT TO MONITOR
[2020-04-30 16:43] LABS: Glucose Point of Care 97 mg/dL (70-110)
--- NOTE | 2020-04-30 17:17 | PC.NURSE ---
PRN FLEXERIL 5 MG GIVEN PO PER PT C/O STATED MUSCLE SPASMS. WILL CONT TO MONITOR
--- NOTE | 2020-04-30 19:32 | P.PN_ITS ---
Subjective NPU Subjective: Interval history: The patient's mood has improved significantly. She is formulated a plan to get down to [place] on the [facility] and hang out with her sister. We will begin the discharge process tomorrow. She is got a lot of meds she is going to need to take care of. In passing, it should be noted that she signed in voluntarily and is no longer under a 96-hour hold. Medications: Reviewed: Yes Medication Review Details: Current Medications Acetaminophen (Tylenol) 650 mg PO Q4H PRN PRN Reason: MILD PAIN Last Admin: 04/26/20 21:32 Dose: 650 mg Documented by: Albuterol Sulfate (Ventolin) 0 puff INHALATION BID PRN PRN Reason: SHORTNESS OF BREATH Last Admin: 04/30/20 08:45 Dose: 1 puff Documented by: Albuterol/Ipratropium (Combivent Respimat) 1 puff INHALATION PRN PRN PRN Reason: SHORTNESS OF BREATH Amlodipine Besylate (Norvasc) 2.5 mg PO DAILY [facility] Last Admin: 04/30/20 07:36 Dose: 2.5 mg Documented by: Benztropine Mesylate (Cogentin) 1 mg PO BID PRN PRN Reason: Mild Extrapyramidal symptoms Betamethasone/Clotrimazole (Lotrisone) 1 applic TOPICAL TID [facility] Last Admin: 04/30/20 14:45 Dose: 1 applic Documented by: Camphor/Menthol/Phenol (Blistex) 1 applic TOPICAL Q1H PRN PRN Reason: DRYNESS Cyclobenzaprine HCl (Flexeril) 5 mg PO TID PRN PRN Reason: MUSCLE SPASMS Last Admin: 04/30/20 17:16 Dose: 5 mg Documented by: Dextrose (D50w) 25 ml IVP ONCE PRN; Protocol PRN Reason: hypoglycemia protocol Dextrose (D50w) 50 ml IVP PRN PRN; Protocol PRN Reason: hypoglycemia protocol Diltiazem HCl (Cardizem Cd (24hr)) 180 mg PO DAILY [facility] Last Admin: 04/30/20 07:35 Dose: 180 mg Documented by: Diphenhydramine HCl (Benadryl) 50 mg IM ONCE PRN PRN Reason: Severe Extrapyramidal Symptoms Diphenhydramine HCl (Benadryl) 50 mg IM Q4H PRN PRN Reason: Severe Aggression Escitalopram Oxalate (Lexapro) 10 mg PO DAILY [facility] Last Admin: 04/30/20 07:34 Dose: 10 mg Documented by: Gabapentin (Neurontin) 600 mg PO TID [facility] Last Admin: 04/30/20 14:44 Dose: 600 mg Documented by: Glucagon (Glucagen) 1 mg IM ONCE PRN; Protocol PRN Reason: Adult Acute Hypoglycemia Prot. Haloperidol (Haldol) 5 mg PO Q4H PRN PRN Reason: AGITATION Haloperidol Lactate (Haldol Inj) 5 mg IM Q4H PRN PRN Reason: Severe Aggression Hydroxyzine Pamoate (Vistaril) 50 mg PO QID PRN PRN Reason: ANXIETY Last Admin: 04/30/20 14:44 Dose: 50 mg Documented by: Dextrose (D5w) 500 mls @ 100 mls/hr IV ONCE PRN; Protocol PRN Reason: Adult Acute Hypoglycemia Prot Ibuprofen (Motrin) 800 mg PO Q8H PRN PRN Reason: Pain, Moderate Last Admin: 04/30/20 17:16 Dose: 800 mg Documented by: Insulin Aspart (Novolog) 0 unit SUBCUT WM&BEDTIME [facility]; Protocol Last Admin: 04/30/20 16:40 Dose: Not Given Documented by: Insulin Aspart (Novolog) 10 unit SUBCUT TIDAC [facility] Last Admin: 04/30/20 17:16 Dose: 10 unit Documented by: Insulin Glargine (Lantus) 50 unit SUBCUT BEDTIME [facility] Last Admin: 04/29/20 20:32 Dose: 50 unit Documented by: Loperamide HCl (Imodium Capsule) 2 mg PO Q6H PRN PRN Reason: DIARRHEA Lorazepam (Ativan) 2 mg IM Q4H PRN PRN Reason: Severe Aggression Mirtazapine (Remeron) 30 mg PO BEDTIME [facility] Last Admin: 04/29/20 20:32 Dose: 30 mg Documented by: Nicotine (Nicoderm 21 Mg Patch) 1 patch TRANSDERMA DAILY PRN PRN Reason: NICOTINE WITHDRAWAL Last Admin: 04/29/20 08:25 Dose: 1 patch Documented by: Nicotine Polacrilex (Nicorette) 2 mg BUCCAL Q2H PRN PRN Reason: NICOTINE WITHDRAWAL Last Admin: 04/30/20 14:46 Dose: 2 mg Documented by: Non-Formulary Medication (Glipizide [Glucotrol]) 5 mg PO DAILY [facility] Olanzapine (Zyprexa Zydis) 5 mg PO Q4H PRN PRN Reason: Agitation/Psychosis Ondansetron HCl (Zofran) 4 mg PO Q6H PRN PRN Reason: NAUSEA AND VOMITING Fluticasone/Salmeterol (Advair Diskus 250-50) 1 puff INHALATION BID.RESPIRATORY PRN PRN Reason: SHORTNESS OF BREATH Last Admin: 04/30/20 08:46 Dose: 1 puff Documented by: Sitagliptin Phosphate (Januvia) 100 mg PO DAILY [facility] Last Admin: 04/30/20 07:34 Dose: 100 mg Documented by: Mental Status Exam MSE Comments: This is a 50-year-old female who feels a lot better. Mood is bright and affect is appropriate. Her conversation is filled with laughter. Thought processes, however, are integrated and free of any racing, blocking or looseness of association. Speech is of normal rate and volume, without dysarthria or aprosody or pressure. Insight and judgment are good. She denies suicidal or homicidal ideation, plan or intent. Vitals/I&O/Wt Last Vital Signs Temp 97.2 F L 04/30/20 13:55 Pulse 80 04/30/20 13:55 Resp 18 04/30/20 13:55 BP 120/74 04/30/20 13:55 Pulse Ox 97 04/30/20 13:55 Physical Exam Narrative: EXAM NARRATIVE: COMMON NORMALS: no acute distress GENERAL APPEARANCE: comfortable and appears older than stated age NUTRITIONAL APPEARANCE: obese morbidly obese OTHER: -Resting quietly in bed [facility] COMMON NORMALS: normocephalic, atraumatic, hearing grossly normal bilaterally and moist oral mucous membranes HEAD & SCALP: normocephalic and atraumatic Eye COMMON NORMALS: Equal, round and reactive pupils present, EOMs intact bilaterally and conjunctivae normal CONJUNCTIVA: Yes conjunctivae normal PUPIL: Yes Equal, round and reactive pupils present Neck/C-Spine COMMON NORMALS: full ROM GENERAL: Yes normal visual inspection and Yes trachea midline Resp COMMON NORMALS: normal respiratory effort, No retractions, No use of accessory muscles and clear to auscultation bilaterally EFFORT & INSPECTION: Yes able to speak in complete sentences, Yes symmetric chest movement and No tachypneic AUSCULTATION: clear to auscultation bilaterally Cardio COMMON NORMALS: regular rate, regular rhythm, S1 normal heart sound present, S2 normal heart sound present and No murmurs present (Cardio) RATE: regular rate RHYTHM: regular rhythm HEART SOUNDS: S1 normal heart sound present and S2 normal heart sound present GI COMMON NORMALS: Normal to inspection, nondistended, normoactive bowel sounds present, Soft to palpation and non-tender PALPATION: Yes Soft to palpation Extremity COMMON NORMALS: normal to inspection, full ROM and no clubbing, cyanosis or edema; negative for no pedal edema Neuro COMMON NORMALS: moves all extremities, no focal motor deficits, no sensory deficits noted and gait normal Psych COMMON NORMALS: mental status grossly normal, Normal thought process present, cooperative and speech normal SPEECH: Yes normal speech MOOD & AFFECT: Yes anxious THOUGHT PROCESS: Normal thought process present Skin COMMON NORMALS: no jaundice, no petechiae and no mottling NARRATIVE SKIN EXAM: -psoriatic lesions on bilateral elbows, knees and bilateral arms GENERAL SKIN EXAM: crusts (elbows, knees) A&P Additional A&P Information Assessment and plan (1) Methamphetamine use: -self reported, confirmed on UDS -per psychiatry (2) Depression: (3) Anxiety: (4) UTI (urinary tract infection): -continue cefuroxime (day 3) (5) Diabetes mellitus type 2 in obese: -IDDM type II -A1c-12.2 -Accuchecks, ISS, scheduled lantus; meal-time insulin -consistent carb diet -glipizide not on formulary, continue januvia (6) Hypertension: -on diltiazem -hypertensive part of which is likely anxiety driven, continue amlodipine, continue to monitor vital signs (7) Breast cancer: -details unknown Additional A&P Information -Morbid obesity: BMI-34 kg/m2 -Psoriatic dermatitis; on topical corticosteroids -+ test, serum quantitative b-hCG noted (7), unlikely to be true -consistent carb diet as tolerated -Dispo: per psych; homeless -Code status: FULL code Attestations NPU Medical Necessity Statement*: I anticipate 1 or 2 midnights. Time Spent in Patient Care: Greater than 35 minutes (>than 50% of time spent in counselling and/or direct pt care on unit) . 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
[2020-04-30 20:24] LABS: Glucose Point of Care 161 mg/dL (70-110)
[2020-04-30] MEDS: mirtazapine 30 mg Tablet PO (20:44)
[2020-04-30] MEDS: insulin glargine 100 units/1 mL 50 UNIT SUBCUT (20:45)
--- NOTE | 2020-04-30 21:16 | PC.NURSE ---
pt given scheduled gabapentin, remeron, lantus, lotrisone, and novolog 4 units per sliding scale.
[2020-05-01 06:00] VITALS: BP 110/64; PULSE 78; RESP 16; TEMP 36.5; O2SAT 97
[2020-05-01] MEDS: dilTIAZem ER (24HR) 180 mg Capsule PO (08:06)
[2020-05-01] MEDS: hyDROXYzine 25 mg Capsule 50 MG PO (08:06)
[2020-05-01] MEDS: gabapentin 300 mg Capsule 600 MG PO ×2 (08:07→14:12)
[2020-05-01] MEDS: escitalopram 10 mg Tablet PO (08:07)
[2020-05-01] MEDS: sitagliptin 100 mg Tablet PO (08:08)
[2020-05-01] MEDS: amlodipine 5 mg Tablet 2.5 MG PO (08:08)
[2020-05-01] MEDS: nicotine 21 mg Patch 1 PATCH TRANSDERMA (08:09)
[2020-05-01] MEDS: cyclobenzaprine 10 mg Tablet 5 MG PO (08:10)
--- NOTE | 2020-05-01 08:11 | PC.NURSE ---
PRN VISTARIL & FLEXERIL VISTARIL 50 MG GIVEN PO PER PT C/O STATED ANXIETY. FLEXERIL 5 MG GIVEN PO PER PT C/O STATED MUSCLE SPASMS
[2020-05-01 10:26] LABS: Glucose Point of Care 149 mg/dL (70-110)
[2020-05-01 11:00] LABS: Glucose Point of Care 165 mg/dL (70-110)
--- NOTE | 2020-05-01 12:39 | P.DS_ITS ---
Diagnoses at Discharge Discharge Diagnosis (1) Methamphetamine use: Status: Acute Problem details: Patient used but has resolved to recover. (2) Depression: Status: Chronic Problem details: Patient states she feels a lot better on the medicine. Qualifiers: Depression Type: unspecified Qualified Code(s): F32.9 - Major depressive disorder, single episode, unspecified (3) Dependency on alcohol: Status: Acute Problem details: I do not drink, patient states. Reason for Visit Reason for Visit: DIRECT ADMIT/ SI Hospital Course Hospital Course Today the patient is profoundly depressed but not suicidal or homicidal. She has a significant dermatologic problem which will be consulted by Dr. Isidro. I have ascertained that she responded to Celexa and and Lexapro. Both of these are now generic and I will get her started on one of those. Mental Status Exam MSE Comments: This is a 50-year-old female who feels a lot better. Mood is bright and affect is appropriate. Her conversation is filled with laughter. Thought processes, however, are integrated and free of any racing, blocking or looseness of association. Speech is of normal rate and volume, without dysarthria or aprosody or pressure. Insight and judgment are good. She denies suicidal or homicidal ideation, plan or intent. Physical Exam Narrative: EXAM NARRATIVE: EXAM NARRATIVE: COMMON NORMALS: no acute distress GENERAL APPEARANCE: comfortable and appears older than stated age NUTRITIONAL APPEARANCE: obese morbidly obese OTHER: -Resting quietly in bed [facility] COMMON NORMALS: normocephalic, atraumatic, hearing grossly normal bilaterally and moist oral mucous membranes HEAD & SCALP: normocephalic and atraumatic Eye COMMON NORMALS: Equal, round and reactive pupils present, EOMs intact bilaterally and conjunctivae normal CONJUNCTIVA: Yes conjunctivae normal PUPIL: Yes Equal, round and reactive pupils present Neck/C-Spine COMMON NORMALS: full ROM GENERAL: Yes normal visual inspection and Yes trachea midline Resp COMMON NORMALS: normal respiratory effort, No retractions, No use of accessory muscles and clear to auscultation bilaterally EFFORT & INSPECTION: Yes able to speak in complete sentences, Yes symmetric ches t movement and No tachypneic AUSCULTATION: clear to auscultation bilaterally Cardio COMMON NORMALS: regular rate, regular rhythm, S1 normal heart sound present, S2 normal heart sound present and No murmurs present (Cardio) RATE: regular rate RHYTHM: regular rhythm HEART SOUNDS: S1 normal heart sound present and S2 normal heart sound present GI COMMON NORMALS: Normal to inspection, nondistended, normoactive bowel sounds present, Soft to palpation and non-tender PALPATION: Yes Soft to palpation Extremity COMMON NORMALS: normal to inspection, full ROM and no clubbing, cyanosis or edema; negative for no pedal edema Neuro COMMON NORMALS: moves all extremities, no focal motor deficits, no sensory deficits noted and gait normal Psych COMMON NORMALS: mental status grossly normal, Normal thought process present, cooperative and speech normal SPEECH: Yes normal speech MOOD & AFFECT: Yes anxious THOUGHT PROCESS: Normal thought process present Skin COMMON NORMALS: no jaundice, no petechiae and no mottling NARRATIVE SKIN EXAM: -psoriatic lesions on bilateral elbows, knees and bilateral arms GENERAL SKIN EXAM: crusts (elbows, knees) Discharge Data Data Completed and Pending: Labs from last 24 hours 05/01/20 05/01/20 04/30/20 10:56 06:43 20:16 POC Glucose 165 149 161 04/30/20 16:38 POC Glucose 97 Vitals: Last Vital Signs Temp 97.7 F 05/01/20 06:00 Pulse 78 05/01/20 06:00 Resp 16 05/01/20 06:00 BP 110/64 05/01/20 06:00 Pulse Ox 97 05/01/20 06:00 Discharge Plan Discharge Patient Disposition: Home Condition: Stable Prescriptions: New cyclobenzaprine 10 mg Tablet 5 mg PO TID PRN (Reason: Muscle Spasms) 30 Days Qty: 90 RF: 3 amlodipine 5 mg Tablet 2.5 mg PO DAILY 30 Days Qty: 30 RF: 3 Advair Diskus 250-50 mcg/dose Blister With Device 1 puff inhalation BID.RESPIRATORY PRN (Reason: Shortness Of Breath) 30 Days Qty: 1 RF: 3 Novolog U-100 Insulin aspart 100 unit/mL Solution 0 unit SUBCUT WM&BEDTIME 30 Days RF: 0 Novolog U-100 Insulin aspart 100 unit/mL Solution 10 unit SUBCUT TIDAC 30 Days Qty: 100 RF: 3 mirtazapine 30 mg Tablet 30 mg PO BEDTIME 30 Days Qty: 30 RF: 0 escitalopram oxalate 10 mg Tablet 10 mg PO DAILY 30 Days Qty: 30 RF: 3 Continued ibuprofen [IBU] 800 mg tablet See Rx Instructions .ROUTE .COMPLEX PRN (Reason: Pain, Moderate) RF: 0 fluticasone propionate inhaler See Rx Instructions .ROUTE .COMPLEX RF: 0 Neurontin 600 mg tablet See Rx Instructions .ROUTE .COMPLEX 30 Days Qty: 90 RF: 3 Cardizem CD 180 mg capsule,extended release 24hr See Rx Instructions .ROUTE .COMPLEX 30 Days Qty: 30 RF: 3 Glucotrol 5 mg tablet 5 mg PO DAILY 30 Days Qty: 30 RF: 3 Januvia 100 mg tablet See Rx Instructions .ROUTE .COMPLEX 30 Days Qty: 30 RF: 0 Lantus Solostar U-100 Insulin 100 unit/mL (3 mL) insulin pen 50 unit SUBCUT BEDTIME 30 Days Qty: 90 RF: 3 Ventolin HFA inhaler See Rx Instructions .ROUTE .COMPLEX 30 Days Qty: 1 RF: 3 Discontinued citalopram [Celexa] 40 mg tablet See Rx Instructions .ROUTE .COMPLEX RF: 0 hydroxyzine HCl tablet See Rx Instructions .ROUTE .COMPLEX RF: 0 Discharge Orders: Discharge Order (Routine); Ordered 05/01/20 Ordered By: Donald Bennett Referrals: [facility] Homeless Department [Other] (Take your preliminary application and referral letter to the residential, ask to speak to Rafaela or Flavia to do a interview. *for after hours emergency call [phone] If you are currently homeless and would like to sign up for the [facility] located in [facility], you can call the Homeless [facility]dc at the number above to acquire a preliminary residential application. [facility]?s Homeless Department can help with a Housing Assessment and provide resources or financial assistance for families experiencing homelessness in our coverage area.) [facility] [Other] (Resource for mental health follow-up, they also have a location in [place]. [address] [address]) [facility] [Other] (An additional resource for mental health. They also offer primary care services.) [facility] [Other] (A resource for substance abuse treatment. They offer outpatient classes at their satellite office in [place]. Call for more information.) Dr. Daniel Rincon [Other] (Call for appointment Nut Picker) Discharge Diet: Usual diet Discharge Activity: Resume usual activity Discharge Attestations NPU Time Spent in Discharge Care*: greater than 30 min Specific Discharge Activities: Specific discharge activities: educating patient, discussing with pcp/other providers, discussing with case management specialist/soci al workers/dc planners, documenting/other paperwork and evaluating patient/reviewing data Time Spent in Smoking Cessation: Time spent discussing smoking cessation with patient: more than 10 minutes Details of Smoking Cessation Education: Details of interaction between cigarette smoking, her cancer, her obesity and diabetes, a lethal combination Status at Discharge: Cognitive status at discharge: cognitively intact , Behavioral status at discharge: cooperative , Functional status at discharge: independent ambulation Overall status at discharge: patient is back to baseline Coding Level of Care Code 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
[2020-05-01 13:36] VITALS: BP 110/64; PULSE 78; RESP 16; TEMP 36.5; O2SAT 97
--- NOTE | 2020-05-01 14:06 | PC.NURSE ---
LOTRISONE CREAM REFUSED, PT STATED I THINK IT'S MAKING IT WORSE
== END 2020-05-01 14:46 | disposition home or self-care (01) | DRG 881 ==
LOC: ER 22:06 → NP 22:52
PROVIDERS: Family Medicine; Internal Medicine; Admitting Provider Psychiatry & Neurology Psychiatry; Emergency Provider Emergency Medicine; Visit Provider Psychiatry & Neurology Psychiatry
DX: F32.9 Major depressive disorder, single episode, unspecified (principal); F43.24 Adjustment disorder with disturbance of conduct; F15.90 Other stimulant use, unspecified, uncomplicated; F10.20 Alcohol dependence, uncomplicated; Z59.0 Homelessness; Z85.3 Personal history of malignant neoplasm of breast; M19.90 Unspecified osteoarthritis, unspecified site; I10 Essential (primary) hypertension; E11.9 Type 2 diabetes mellitus without complications; E66.9 Obesity, unspecified; Z68.35 Body mass index [BMI] 35.0-35.9, adult; J44.9 Chronic obstructive pulmonary disease, unspecified; Z20.828 Contact with and (suspected) exposure to other viral communicable diseases
CPT/HCPCS: 12345; 36415; 36416; 80307; 82962; 83036; 84443; 84702; 84703; 94640; 96372; 99284; 99285; J1815 ×2; J3535